=== PATIENT | female | born 1985 | race Two or more races ===

== ENCOUNTER 2019-10-06 09:33 | Emergency (ER) | payer MEDICAID ==
[~2019-10-06] VITALS: Ht 152.4 cm; Wt 63.5 kg
[2019-10-06 09:58] VITALS: BP 111/64
[2019-10-06 10:26] LABS: APPEARANCE,URINE CLEAR; BILIRUBIN, URINE NEGATIVE (NEGATIVE); COLOR,URINE PALE YELLOW; GLUCOSE, URINE (UA) NEGATIVE (NEGATIVE); KETONES,URINE NEGATIVE (NEGATIVE); LEUKOCYTE ESTERASE ,URINE 3+ (NEGATIVE); NITRITE,URINE NEGATIVE (NEGATIVE); PH,URINE 5 (4.5-8.0); PROTEIN,URINE NEGATIVE (NEGATIVE); UROBILINOGEN,URINE NORMAL MG/DL (0.0-1.0)
[2019-10-06] MEDS ORDERED: CIPROFLOXACIN500 M2 ORAL (10:53)
[2019-10-06] MEDS ORDERED: IBUPROFEN600 MG ORAL (10:53)
[2019-10-06] MEDS ORDERED: TAMIFLU75 MG ORAL (10:53)
--- NOTE | 2019-10-06 11:10 | Emergency Room Report ---
History of Present Illness General Chief Complaint: Flu Like Symptoms Source: Patient Present Illness HPI Patient presents emergency department today complaining of cough runny nose sore throat fevers. In addition patient also complains of flank pain. Patient states that she is having symptoms for several days. She denies any diarrhea. But complains of nausea and vomiting as well. No other complaints are noted patient noted to be moderate to severe. Patient has no known sick contacts. No other modifying factors. No other associated signs and symptoms. No other complaints were noted. Allergies: Coded Allergies: No Known Allergies (Unverified , 10/06/19) Patient History Past Medical History: none Past Surgical History: none Pertinent Family History: none Social History: Denies: smoking, alcohol use, drug use Last Menstrual Period: unk Now: No Reviewed Nursing Documentation: PMH: Agreed; PSxH: Agreed Nursing Documentation-PMH Past Medical History: No Stated History Review of Systems All Other Systems: negative except mentioned in HPI Physical Exam Vital Signs Date Time Temp Pulse Resp B/P (MAP) Pulse Ox O2 Delivery O2 Flow Rate FiO2 10/06/19 09:45 99.0 97 20 108/65 (79) 97 Room Air Sp02 EP Interpretation: reviewed, normal General Appearance: normal inspection, well appearing, no apparent distress, alert Head: atraumatic Eyes: bilateral eye normal inspection ENT: normal ENT inspection, hearing grossly normal, normal voice Neck: normal inspection, full range of motion, supple, no bony tend Respiratory: normal inspection, lungs clear, normal breath sounds, no respiratory distress, no retraction, no wheezing Cardiovascular #1: regular rate, rhythm, no edema Gastrointestinal: normal inspection, normal bowel sounds, non tender, soft, no guarding, no hernia Genitourinary: no CVA tenderness Musculoskeletal: normal inspection, back normal, normal range of motion Neurologic: alert, responsive, speech normal, normal inspection Psychiatric: normal inspection, judgement/insight normal, mood/affect normal Medical Decision Making Diagnostic Impression: Primary Impression: UTI (urinary tract infection) Additional Impression: Influenza-like symptoms ER Course Patient presents emergency department today complaint cough congestion fever body aches nausea and vomiting. Differential considerations include influenza, UTI, viral syndrome, pneumonia just name a few. Patient's exam consistent with a viral syndrome likely influenza. However patient also has evidence UTI as well. Therefore will give patient Tamiflu as well as Cipro. Recommend close outpatient follow-up. Motrin for fever and body aches. Patient is advised to follow up with primary doctor in 2-3 days and return the emergency room for any worsening symptoms and as needed. Labs Test 10/06/19 10:00 Urine Color Pale yellow Urine Appearance Clear Urine pH 5 (4.5-8.0) Urine Specific [place] 1.015 (1.005-1.035) Urine Protein Negative (NEGATIVE) Urine Glucose (UA) Negative (NEGATIVE) Urine Ketones Negative (NEGATIVE) Urine Blood 1+ (NEGATIVE) Urine Nitrite Negative (NEGATIVE) Urine Bilirubin Negative (NEGATIVE) Urine Urobilinogen Normal MG/DL (0.0-1.0) Urine Leukocyte Esterase 3+ (NEGATIVE) Urine RBC 2-4 /HPF (0 - 2) Urine WBC 10-15 /HPF (0 - 2) Urine Squamous Epithelial Cells Many /LPF (NONE/OCC) Urine Bacteria Few /HPF (NONE) Urine HCG, Qualitative Negative (NEGATIVE) Last Vital Signs Date Time Temp Pulse Resp B/P (MAP) Pulse Ox O2 Delivery O2 Flow Rate FiO2 10/06/19 09:59 95 20 Room Air 10/06/19 09:58 99.0 111/64 97 Status: improved Disposition: HOME, SELF-CARE Condition: Stable Scripts Ibuprofen* (MOTRIN*) 600 Mg Tablet 600 MG ORAL Q8H PRN for For Pain, #30 TAB 0 Refills Prov: Elpidio Gerber MD 10/06/19 Ciprofloxacin Hcl* (CIPROFLOXACIN HCL*) 500 Mg Tablet 500 MG ORAL Q12H, #14 TAB 0 Refills Prov: Elpidio Gerber MD 10/06/19 Oseltamivir Phosphate (Tamiflu) 75 Mg Capsule 75 MG ORAL TWICE A DAY for 5 Days, CAP Prov: Elpidio Gerber MD 10/06/19 Referrals: NOT CHOSEN IPA/,REFERRING (PCP) Patient Instructions: Influenza, Adult, [id number], Urinary Tract Infection, [id number] Elpidio Gerber MD Oct 06, 2019 11:10
[2019-10-06 11:12] VITALS: BP 110/62
== END 2019-10-06 11:15 | disposition home or self-care (01) ==
LOC: EMR 10:35
DX: N39.0 Urinary tract infection, site not specified (principal); R05 Cough
CPT/HCPCS: 81003; 81025; 87086; Z7502; 99283